=== PATIENT | female | born 1980 | race Caucasian/White ===

== ENCOUNTER 2016-11-20 16:21 | Emergency (ER) | payer OTHER ==
[~2016-11-20] VITALS: Ht 160 cm; Wt 95.5 kg
[~2016-11-20 16:21] MED LIST: NOMED
[2016-11-20 16:28] VITALS: BP 121/77; PULSE 120; RESP 18; O2SAT 98
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
[2016-11-20] MEDS ORDERED: HYDROmorphone 0.5 mg/0.5 mL iSecure Syringe IVPUSH ONE (18:25)
[2016-11-20] MEDS ORDERED: Lidocaine 2% 50 mL Inj NERVEBLOCK ONE (18:25)
[2016-11-20] MEDS ORDERED: HYDROmorphone 1 mg/mL Inj IVPUSH ONE (18:25)
[2016-11-20] MEDS ORDERED: SULF1TAB7 PO (18:29)
[2016-11-20] MEDS ORDERED: CEPH-512 PO (18:29)
[2016-11-20] MEDS ORDERED: HYDR-4003 PO (18:31)
[2016-11-20] MEDS ORDERED: Lidocaine 1%-Epi 1:100,000 20 mL Inj ONE (18:35)
[2016-11-20 18:58] VITALS: BP 122/77; PULSE 115; RESP 20; O2SAT 98
[2016-11-20] MEDS ORDERED: cefTRIAXone Inj 2,000 MG in IV Premix 1 EACH IV ONE (19:05)
[2016-11-20] MEDS ORDERED: 0.9% Sodium Chloride 1,000 ML IV ONE (19:05)
[2016-11-20] MEDS ORDERED: Vancomycin Dose per Pharmacist XX ONE (19:05)
[2016-11-20] MEDS ORDERED: Trimethoprim-Sulfa 160 mg-800 mg Tablet PO ONE (19:20)
[2016-11-20 19:29] VITALS: BP 114/67; PULSE 94; RESP 16; O2SAT 96
[2016-11-20] MEDS ORDERED: HYDROcodone-APAP 5-325 mg Tablet PO ONE (19:40)
[2016-11-20 19:54] VITALS: BP 114/67; PULSE 94; RESP 16; O2SAT 96
== END 2016-11-20 19:55 | disposition home or self-care (01) ==
LOC: SED 16:21
DX: L02.414 Cutaneous abscess of left upper limb (principal); F19.20 Other psychoactive substance dependence, uncomplicated; R50.9 Fever, unspecified; R00.0 Tachycardia, unspecified; Z87.891 Personal history of nicotine dependence
CPT/HCPCS: 10061; 87070; 87075; 87077; 87186; 87205; 96374; 99284; J1170; J7030

== ENCOUNTER 2016-11-24 15:55 | Emergency (ER) | payer OTHER ==
[~2016-11-24] VITALS: Ht 160 cm; Wt 95.5 kg
[~2016-11-24 15:55] MED LIST changes: +CEPH-512 PO; +HYDR-4003 PO; +SULF1TAB7 PO
[2016-11-24 16:04] VITALS: BP 110/76; PULSE 84; RESP 20; O2SAT 99
== END 2016-11-24 19:46 | disposition left against medical advice (07) ==
LOC: SED 15:55
DX: Z53.21 Procedure and treatment not carried out due to patient leaving prior to being seen by health care provider (principal)

== ENCOUNTER 2016-11-26 15:44 | Emergency (ER) | payer OTHER ==
[~2016-11-26] VITALS: Ht 160 cm; Wt 109.1 kg
[2016-11-26 15:47] VITALS: BP 111/76; PULSE 96; O2SAT 100
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
[2016-11-26] MEDS ORDERED: SULF1TAB7 PO (16:29)
[2016-11-26] MEDS ORDERED: IBUP800T28 PO (16:29)
[2016-11-26] MEDS ORDERED: CEPH-512 PO (16:29)
== END 2016-11-26 16:40 | disposition home or self-care (01) ==
LOC: SED 15:44
DX: L02.414 Cutaneous abscess of left upper limb (principal); Z48.01 Encounter for change or removal of surgical wound dressing; Z87.891 Personal history of nicotine dependence

== ENCOUNTER 2016-11-29 10:59 | Emergency (ER) | payer OTHER ==
[~2016-11-29 10:59] MED LIST changes: +IBUP800T28 PO
[2016-11-29 11:05] VITALS: BP 115/74; PULSE 84; RESP 15; O2SAT 97
--- NOTE | 2016-11-29 12:30 | ED.REPORT ---
HPI-Rash / Abscess Date of Service Nov 29, 2016 ED Provider: Thang Looney PA-C Adrianna is a 36-year-old female who presents for a wound check 9 days after an initial incision and drainage. Patient was seen in this department for a abscess in the antecubital fossa of her left arm, likely associated with IV drug use, which was incised and drained. She was placed on antibiotics which she continues to take. The wound has been checked several times since then, repacked. Most recently 2 days ago. She reports that the site continues to be quite painful but that the redness, swelling, drainage have been steadily reducing. Denies fevers/chills. Nursing Notes Stated Complaint: FOLLOW-UP Chief Complaint: Wound Recheck/Suture Removal Nursing Notes Reviewed: Yes Allergies: Coded Allergies: No Known Allergies (Verified Allergy, Unknown, 11/29/16) Scheduled Cephalexin (Keflex) 500 Mg Capsule 500 MG PO QID Cephalexin (Keflex) 500 Mg Capsule 500 MG PO QID Sulfamethoxazole/Trimeth 800-160 mg (Bactrim DS) 1 Each Tablet 1 TABLET PO BID Sulfamethoxazole/Trimeth 800-160 mg (Bactrim DS) 1 Each Tablet 1 TABLET PO BID Scheduled PRN Hydrocodone-Acetaminophen 5-325 mg (Hydrocodone-Acetaminophen 5-325 mg) 1 Each Tablet 1 TABLET PO Q4H PRN PRN For Pain Ibuprofen (Ibuprofen) 800 Mg Tablet 800 MG PO TID PRN PRN For Pain Miscellaneous Medications No Historical Medication (No Historical Medication) Ea General Time Seen by MD: 11:29 Chief Complaint Tender/swollen area (wound check) Past Medical History Past Medical History Arthritis Past Surgical History Reports: Cholecystectomy Reports: Tubal ligation Smoking History Former Smoker Social History Alcohol Use: Denies alcohol use Drug Use: IV drugs Occupation lives with family, no work or school at this time 07/21/2016 Ambulatory Status Independent Review of Systems Negative unless stated otherwise in history of present illness Physical Exam General: Well appearing, well developed, well nourished, mild distress. Head: Atraumatic, normocephalic. Eyes: No scleral icterus or injection. No discharge. Vision grossly intact. ENT: Voice clear, hearing grossly intact. Skin: Warm and dry. Left elbow: One-inch incision consistent with a incision and drainage, packed with iodoform gauze with mild purulent exudate. No redness, swelling, lymphangitis. Granulation tissue visible in the sides of wound. The wound is still quite deep, 1-2 cm in one aspect. appears to be healing well. Neurological: Grossly nonfocal. Psychological: alert and oriented. Speech appropriate, linear and logical. Behavior appropriate. Initial Vital Signs Vital Signs (First) Date Time Temp Pulse Resp B/P Pulse Ox O2 Delivery O2 Flow Rate FiO2 11/29/16 11:05 36.2 84 15 115/74 97 Room Air Initial VS: Reviewed, Vital signs normal Procedures Skin: Wound / Burn Check Normal Wound / Burn Check: Healing well, No apparent infection, No abscess / fluctuance, No lymphangitis Palpation Abnormal: Tenderness moderate Packing: Present, Packing removed, New packing inserted Re-Eval/Medical Decision Med Decision/Clinical Course I discussed this case with Dr. Cerrato. This is a 36-year-old woman with history of IV drug use who was treated in this department 9 days ago for a abscess in her antecubital fossa. The wound was packed and has been checked several times. He is on antibiotics which she continues to take. The wound appears to be progressing quite well with no redness, swelling and minimal purulent discharge. Granulation tissue is visible in the wound, which is still fairly deep, perhaps as much as 2 cm in one aspect. I repacked the wound and dressed it. Advised returning in 2 days for a wound check. The patient complains of pain, and asked for narcotic pain medication. Considering her history of IV drug use and noting that she had been denied at her previous visit, I counseled regular ibuprofen and acetaminophen. Provided return precautions, advised her to get established with her primary care provider.. Patient departed before receiving written instructions. Discharge & Departure Impression: Primary Impression: Encounter for recheck of abscess following incision and drainage Disposition: Home Discharge Condition All VS Reviewed: Yes Condition: Stable Patient Instructions: Abscess Incision and Drainage (ED) Additional Instructions: Recheck of incision and drainage in the emergency department. The wound appears to be healing quite well, with no redness or swelling and only minimal purulent discharge. The wound continues to be quite painful. The pain is best treated with 600 mg of ibuprofen (Advil, Motrin) every 6 hours, or 1000 mg of acetaminophen (Tylenol) every 6 hours. These drugs can be taken at the same time for more severe pain. Continue taking your antibiotics as instructed. Change the dressing, once daily and return for wound check in 2 days. I will provide referral for primary care follow-up. Referrals: [facility] (PCP) [facility] Provider for [facility]: Ricco Cerrato MD, Seth PA-C Nov 29, 2016 12:30
== END 2016-11-29 12:15 | disposition home or self-care (01) ==
LOC: SED 10:59
DX: Z51.89 Encounter for other specified aftercare (principal); Z87.891 Personal history of nicotine dependence